=== PATIENT | female | born 1955 | race Caucasian/White ===

== ENCOUNTER → 2018-08-02 | Outpatient (CLI) | payer OTHER ==
--- NOTE | 2018-08-02 15:49 | XR ---
EXAMINATION TYPE: XR Hip Complete RT DATE OF EXAM: 08/02/2018 CLINICAL HISTORY: pain TECHNIQUE: AP and frogleg views of the right hip are obtained. COMPARISON: None. FINDINGS: Severe degenerative narrowing right hip joint space with underlying bony sclerosis and cyst ic change. Instability suggested about the right hip. Underlying avascular necrosis difficult to excl ude. No acute fracture identified. IMPRESSION: 1. Severe degenerative change about the right hip. ICD 10 NO FRACTURE, INITIAL EVALUATION
== END | disposition home or self-care (01) ==
LOC: RADXRMAIN 15:17
PROVIDERS: ATTEND Family Medicine
DX: M16.11 Unilateral primary osteoarthritis, right hip (principal)
CPT/HCPCS: 73502

== ENCOUNTER → 2018-10-21 | Outpatient (CLI) | payer MEDICAID ==
[2018-10-21 13:12] LABS: HCT 40.5 % (34.0-46.0); HGB 13.3 gm/dL (11.4-16.0); MCH 31.9 pg (25.0-35.0); MCHC 32.7 g/dL (31.0-37.0); MCV 97.6 fL (80.0-100.0); Platelet Count 246 k/uL (150-450); RBC 4.15 m/uL (3.80-5.40); RDW 12.4 % (11.5-15.5); WBC 7.8 k/uL (3.8-10.6)
[2018-10-21 13:15] LABS: Appearance,Urine Clear (Clear); Bilirubin,Urine Negative (Negative); Blood,Urine Negative (Negative); Color,Urine Light Yellow; Glucose,Urine (UA) Negative (Negative); Ketones,Urine 1+ (Negative); Leukocyte Esterase,Urine Negative (Negative); Nitrite,Urine Negative (Negative); Protein,Urine Negative (Negative); Specific Gravity,Urine 1.007 (1.001-1.035); Urobilinogen,Urine <2.0 mg/dL (<2.0)
[2018-10-21 13:25] LABS: INR 0.9 (<1.2); Partial Thromboplastin Time 23.6 sec (22.0-30.0); Prothrombin Time 9.8 sec (9.0-12.0)
[2018-10-21 13:59] LABS: ALT 26 U/L (9-52); AST 35 U/L (14-36); African American GFR (CKD) >90 (>60 ml/min/1.73 sqM); Albumin 4.6 g/dL (3.5-5.0); Alkaline Phosphatase 68 U/L (38-126); Anion Gap 12 mmol/L; Blood Urea Nitrogen 16 mg/dL (7-17); Carbon Dioxide 26 mmol/L (22-30); Chloride 101 mmol/L (98-107); Glucose 97 mg/dL (74-99); Potassium 4.4 mmol/L (3.5-5.1); Sodium 139 mmol/L (137-145); Total Bilirubin 0.5 mg/dL (0.2-1.3); Total Protein 8.2 g/dL (6.3-8.2)
== END | disposition home or self-care (01) ==
LOC: LABPAT 11:53
PROVIDERS: ATTEND Orthopaedic Surgery
DX: Z01.818 Encounter for other preprocedural examination (principal); Z01.812 Encounter for preprocedural laboratory examination
CPT/HCPCS: 36415; 80053; 81003; 85027; 85610; 85730; 87070; 93005

== ENCOUNTER 2018-10-29 06:27 | Inpatient (IN) | payer MEDICAID, OTHER ==
[~2018-10-29 06:27] MED LIST: ACETAMINOPHEN TAB 500 MG TAB PO ONE; DEXAMETHASONE SOD PHOSPHATE 10 MG/ML 1 ML VIAL IV ONE; MELOXICAM 7.5 MG TAB PO ONE; MIDAZOLAM 2 MG/2 ML VIAL IV PRN; ONDANSETRON 4 MG/2 ML VIAL IVP ONE; ROPIVACAINE 246.25 MG, EPINEPHrine 0.5 MG, KETOROLAC 30 MG, cloNIDine HCL/PF 80 MCG, WA... MISCELLANE ONE; SCOPOLAMINE 1.5MG/72HR PATCH TRANSDERM ONE; TRANEXAMIC ACID 1,000 MG in SODIUM CHLORIDE 0.9% 100 ML IVPB ONE
[2018-10-29] MEDS ORDERED: LACTATED RINGERS 1,000 ML IV ONE ×2 (06:58→09:24)
[2018-10-29] MEDS ORDERED: LIDOCAINE 1% 20 ML VIAL (10MG/ML) FOR IV START INTRADERMA ONE (06:58)
[2018-10-29] MEDS ORDERED: HYDROmorphone 1 MG/ML 1 ML SYRINGE IVP PRN (07:09)
[2018-10-29] MEDS ORDERED: MAGNESIUM HYDROXIDE 2,400 MG/10 ML CUP PO PRN (07:09)
[2018-10-29] MEDS ORDERED: HYDROmorphone 0.5 MG/0.5 ML SYRINGE IVP PRN ×2 (07:09)
[2018-10-29] MEDS ORDERED: NALOXONE 0.4 MG/ML 1 ML VIAL IV PRN (07:09)
[2018-10-29] MEDS ORDERED: HYDROcodone/APAP 5-325MG 1 EACH TAB PO PRN (07:09)
[2018-10-29] MEDS ORDERED: hydrOXYzine PAMOATE 25 MG CAP PO PRN (07:09)
[2018-10-29] MEDS ORDERED: ONDANSETRON 4 MG/2 ML VIAL IVP PRN (07:09)
[2018-10-29] MEDS ORDERED: DIAZEPAM 5 MG TAB PO PRN (07:09)
[2018-10-29] MEDS ORDERED: SODIUM CHLORIDE 0.9% IRRIG 1,000 ML BTL IRRIGATION ONE (07:44)
[2018-10-29] MEDS ORDERED: diphenhydrAMINE 50 MG/ML 1 ML VIAL ONE (07:44)
[2018-10-29] MEDS ORDERED: TRANEXAMIC ACID 1,000 MG/10 ML VIAL ONE (07:44)
[2018-10-29] MEDS ORDERED: PROPOFOL 10 MG/ML 20 ML VIAL IV ONE (07:44)
[2018-10-29] MEDS ORDERED: fentaNYL (PF) 50 MCG/ML 2 ML AMP ONE (07:44)
[2018-10-29] MEDS ORDERED: SODIUM CHLORIDE 0.9% 100 ML BAG ONE (07:44)
[2018-10-29] MEDS ORDERED: MIDAZOLAM 2 MG/2 ML VIAL ONE (07:44)
[2018-10-29] MEDS ORDERED: HEPARIN SODIUM,PORCINE 10,000 UNIT/ML 1 ML VIAL ONE (07:44)
[2018-10-29] MEDS ORDERED: ceFAZolin 3,000 MG in SODIUM CHLORIDE 0.9% IRRIGATIO 3,000 ML IRRIGATION ONE (08:00)
--- NOTE | 2018-10-29 09:18 | P.OP ---
Date of Procedure: 10/29/18 Preoperative Diagnosis: Severe osteoarthritis right hip Postoperative Diagnosis: Severe osteoarthritis right hip Procedure(s) Performed: Right total hip arthroplasty with a direct anterior approach Implants: Vargas and nephew Polarstem size 4 standard Vargas [employer] Nephew R3, 3 hole acetabular shell, 52 mm Vargas [employer] Nephew reflection 6.5 mm cancellus screw, 20 mm 2 [employer]arg[employer]hew R3, XLPE 20 acetabular liner Vargas [employer] Nephew Oxinium femoral head 36 m, +0 All components were press-fit. The articulation is Oxinium on polyethylene. Anesthesia: spinal Surgeon: Daniel Vivar Peripatologist #1: Celina Barakat Estimated Blood Loss (ml): 300 (147 mL returned with Cell Saver) Pathology: other (Femoral head) Condition: stable Disposition: PACU Indications for Procedure: After failure of conservative treatment we discussed the surgical and nonsurgical treatment options at length. Patient wishes to proceed with a total hip arthroplasty with a direct anterior approach. Complications specific to this procedure were discussed at length, including but not limited to infection, leg length discrepancy, dislocation, and nerve injury. Patient is aware of all these complications and informed consent was obtained Operative Findings: The operative findings are consistent with severe osteoarthritis of the right hip Description of Procedure: Patient was seen and evaluated in the preoperative area, consent was reviewed, and the surgical site was marked with a skin marker. Patient was then brought to the operating room and given prophylactic antibiotics intravenously. 1 g of Tranexamic acid was also given. A spinal anesthetic was administered by the anesthesia department. The patient was then placed on the Cobalt table with the bony prominences well-padded. The hip area was then prepped and draped in usual sterile fashion. A universal timeout was then performed, which confirmed the patient's name, surgical site, ALLERGIES, and procedure being performed. Next the incision site was located at 1 cm distal and 1 cm lateral to the anterior superior iliac spine. The skin and subcutaneous tissues were sharply incised. Incision was carefully dissected down to the fascia overlying the tensor fascia ary muscle. This fascia was then incised in line with the incision. Next, using blunt finger dissection, the tensor fascia ary muscle was dissected off its investing fascia. The muscle was then carefully retracted laterally with a cobra retractor over the lateral neck of the femur. Next, the circumflex vessels were identified and cauterized using the AquaMantis device. The anterior hip capsule was then exposed. The capsule was then opened and an inverted T fashion. Cobra retractors were then placed intracapsularly. The proximal femur was then visualized. The femoral neck was then osteotomized appropriate level above the lesser trochanter. Small amount of traction was placed with the Cobalt table. A small wedge of bone was then removed from the remaining femoral head. Next, using a corkscrew femoral head was easily removed from the acetabulum. On gross visual inspection, the femoral head had complete loss of articular cartilage in m ultiple periarticular osteophytes. Attention was then turned to the acetabulum. the acetabulum was exposed and any remaining labrum was excised. Sequential reaming of the acetabulum was performed using fluoroscopic guidance. When the appropriate size was reached, a trial was then placed. The position and fit of the trial was checked with fluoroscopy. The trial was then removed. Then, using fluoroscopic guidance, the final implant was impacted at 20 of anteversion and 40 of abduction, and fully seated in the acetabulum. 2 screws were then placed in the acetabulum. Again fluoroscopy was used to check position of the screws. Next, the liner was then impacted, with a 20 elevated liner located in the anterior superior quadrant. Component locking was confirmed. Attention was then directed to the femur. With the aid of the Cobalt table, the femur was externally rotated to approximately 130, extended, and abducted under the opposite leg. A side hook was then placed under the proximal femur, and the side hook elevator was used to elevate the proximal femur. Retractors were then placed. A capsular release was performed, as well as a release of the conjoined tendon, which afforded excellent visualization of the proximal femur. Next, a box osteotome was used to lateralize the proximal femur. A product handler was then used to locate the femoral canal. Sequential broaching was then performed with appropriate size which afforded excellent fixation in the proximal femur. A trial was then placed with appropriate head and neck, and the hip was gently reduced with the aid of the Cobalt table. Fluoroscopy was then used to check position of the components, as well as to ensure equal leg lengths. The hip was then gently dislocated and the trials were then removed. Final implants were then impacted and the hip was again reduced. Final fluoroscopic x-rays confirmed that the components were in anatomic position, as well as equal leg lengths. The hip was also taken through range of motion, and found to be stable. The hip was then copiously irrigated with antibiotic solution with pulsatile lavage. The hip was then irrigated with Irrisept solution. The soft tissues were then injected with a ropivacaine solution, which consisted of 246.25 mg of ropivacaine, 0.5 mg of epinephrine, 30 mg of Toradol, 80 g of clonidine, and 48.45 mL of sterile water, for a total of 100 mL of fluid injected. A second dose of 1 g of Tranexamic acid was also given. the fascia was then closed with 2-0 strata fix suture. The subcutaneous tissue was closed with 3-0 Vicryl. The subcuticular tissue was closed with 3-0 strata fix suture. The skin was then closed with Dermabond glue and a sterile silver dressing. The patient was then transferred to the recovery room in stable c ondition. The dietitian assistant FÉLIX Valentine was required due to the complexity of surgery, and the need for skilled surgical instrument technician for positioning, draping, exposure, retraction, and closure of the wound.
--- NOTE | 2018-10-29 09:20 | XR ---
EXAMINATION TYPE: XR Hip Limited RT, FL guidance operating room DATE OF EXAM: 10/29/2018 CLINICAL HISTORY: Right hip pain TECHNIQUE: Fluoroscopy. COMPARISON: None. FINDINGS: Fluoroscopic guidance was provided during procedure performed by Dr. Vivar. A total of 46 seconds of fluoroscopic time was utilized during the procedure and 2 spot images was acquired dur ing right hip arthroplasty. IMPRESSION: As Above.
[2018-10-29] MEDS: HYDROmorphone 0.5 MG/0.5 ML SYRINGE IVP PRN ×2 (09:31→09:44)
[2018-10-29] MEDS ORDERED: KETOROLAC 30 MG/ML 1 ML VIAL IVP ONE (09:44)
--- NOTE | 2018-10-29 09:52 | XR ---
EXAMINATION TYPE: XR Hip Limited RT DATE OF EXAM: 10/29/2018 CLINICAL HISTORY: Right hip pain and osteoarthritis. TECHNIQUE: Single AP portable view of right hip is obtained immediately postoperatively. COMPARISON: None. FINDINGS: Metallic hardware from right hip arthroplasty is seen and appears satisfactory in alignment and position. There is evidence of recent surgery with subcutaneous gas noted laterally. IMPRESSION: Metallic hardware from right hip arthroplasty is satisfactory in position.
[2018-10-29] MEDS: LACTATED RINGERS 1,000 ML IV SCH (10:14)
[2018-10-29] MEDS: SODIUM CHLORIDE 0.9% 1,000 ML IV SCH (10:17)
[2018-10-29 11:02] VITALS: BMI 25.7
[2018-10-29] MEDS: HYDROcodone/APAP 5-325MG 1 EACH TAB PO PRN ×3 (13:07→23:30)
--- NOTE | 2018-10-29 14:01 | P.CONS ---
History of Present Illness - Reason for Consult Consult date: 10/29/18 - History of Present Illness Patient is a 63-year-old female with a PMH of hypertension and severe hip osteoarthritis who was admitted for an elective right total hip replacement. The patient underwent the procedure earlier today uneventfully and was seen on the surgical floor postoperatively. The patient reported that her pain is well- controlled and is 0 out of 10 at rest with 5 out of 10 on movement. She otherwise denied any additional complaints and was in good spirits with family at the bedside. She denied chest pain, shortness of breath, fever, chills, nausea, vomiting, abdominal pain, or diarrhea. The patient noted compliance with her antihypertensive medications at home and states that she took her last dose earlier this morning prior to admission. Review of Systems Pertinent positives and negatives as discussed in HPI, a complete review of systems was performed and all other systems are negative. Past Medical History Past Medical History: Diabetes Mellitus, Hypertension, Osteoarthritis (OA) Additional Past Medical History / Comment(s): DIABETES DURING , THAT SON WAS DIAGNOSED WITH DIABETES IN HIS EARLY 20S, HAS INSULING PUMP. History of Any Multi-Drug Resistant Organisms: None Reported Additional Past Surgical History / Comment(s): WISDOM TEETH Past Anesthesia/Blood Transfusion Reactions: Motion Sickness Additional Past Anesthesia/Blood Transfusion Reaction / Comm: HAS NEVER HAS GENERAL ANESTHESIA. Past Psychological History: No Psychological Hx Reported Additional Psychological History / Comment(s): VERY ANXIOUS ABOUT THIS SURGERY Smoking Status: Never smoker Past Alcohol Use History: Rare Past Drug Use History: None Reported - Past Family History Mother Family Medical History: No Reported History Medications and Allergies Home Medications Medication Instructions Recorded Confirmed Type Acetaminophen [Tylenol Extra 500 mg PO Q6H PRN 10/22/18 10/29/18 History Strength] Ibuprofen [Motrin Ib] 200 - 400 mg PO Q6HR PRN 10/22/18 10/29/18 History Metoprolol Succinate (ER) [Toprol 50 mg PO QAM 10/22/18 10/29/18 History XL] Multivitamins, Thera [Multivitamin 1 tab PO QAM 10/22/18 10/29/18 History (formulary)] amLODIPine [Norvasc] 5 mg PO QAM 10/22/18 10/29/18 History Allergies Allergy/AdvReac Type Severity Reaction Status Date / Time bee venom protein (honey bee) Allergy Swelling Verified 10/29/18 11:14 poison porfirio extract Allergy Rash/Hives Verified 10/29/18 11:14 Physical Exam Vitals: Vital Signs Temp Pulse Pulse Resp BP Pulse Ox 10/29/18 10:15 67 18 128/66 96 10/29/18 10:00 68 18 136/68 98 10/29/18 09:45 91 18 124/62 98 10/29/18 09:26 97.7 F 82 18 112/55 100 10/29/18 06:55 97.7 F 86 18 186/80 98 Intake and Output 10/28/18 10/29/18 10/29/18 22:59 06:59 14:59 Intake Total 300 1251 Output Total 350 Balance 300 901 Intake: IV 300 1251 Output: Estimated Blood Loss 350 Other: # Voids 3 General: non toxic, no distress, appears at stated age, normal weight Derm: no unusual rashes/lesions no unusual ecchymoses, warm, dry Head: atraumatic, normocephalic, symmetric Eyes: EOMI, no lid lag, anicteric sclera, pupils equal round reactive to light ENT: Nose and ears atraumatic, no thrush, no pharyngeal erythema Neck: No thyromegaly, no cervical lymphadenopathy, trachea midline, supple Mouth: no lip lesion, mucus membranes moist Cardiovascular: S1S2 reg, no murmur, positive posterior tibial pulse bilateral, no edema, capillary refill less than 2 seconds Lungs: CTA bilateral, no rhonchi, no rales , no accessory muscle use Abdominal: soft, nontender to palpation, no guarding, no appreciable organom egaly, normal bowel sounds Ext: no gross muscle atrophy, muscle strength 5 out of 5 in all extremities except RLE due to pain, R hip anterior dressing noted clean and dry, no contractures Neuro: CN II-XI grossly intact, light touch intact all 4 extremities, finger to nose within normal limits, Psych: Alert, oriented, appropriate affect Assessment and Plan Plan: HTN -C/w home dose of antihypertensives Asthma -Continue with DuoNeb's when necessary Right hip severe osteoarthritis status post right total hip replacement -Continue with pain control as per orthopedics DVT prophylaxis -As per orthopedic service We appreciate this opportunity to be involved in this patient's care. We will follow the patient with you. For any further questions, please not hesitate to contact the [facility] inpatient team.
[2018-10-29] MEDS ORDERED: SENNOSIDES-DOCUSATE SODIUM 1 EACH TAB PO SCH (21:00)
[2018-10-29] MEDS: ASPIRIN 325 MG TAB PO SCH (21:19)
[2018-10-30] MEDS: SODIUM CHLORIDE 0.9% 1,000 ML IV SCH (00:34)
[2018-10-30] MEDS: HYDROcodone/APAP 5-325MG 1 EACH TAB PO PRN (05:49)
[2018-10-30] MEDS: ASPIRIN 325 MG TAB PO SCH (07:19)
[2018-10-30] MEDS: LACTATED RINGERS 1,000 ML IV SCH (07:20)
[2018-10-30 07:32] VITALS: RESP 15; TEMP 97.7
[2018-10-30 08:21] LABS: Basophils # (A) 0.1 k/uL (0-0.2); Basophils % (A) 1 %; Eosinophils % (A) 0 %; HCT 32.6 % (34.0-46.0); HGB 10.6 gm/dL (11.4-16.0); Lymphocytes % (A) 34 %; MCHC 32.4 g/dL (31.0-37.0); MCV 101.6 fL (80.0-100.0); Mean Platelet Volume 7.6; Monocytes # (A) 0.5 k/uL (0-1.0); Monocytes % (A) 6 %; Neutrophils # (A) 5.2 k/uL (1.3-7.7); Neutrophils % (A) 59 %; Platelet Count 203 k/uL (150-450); RBC 3.21 m/uL (3.80-5.40); RDW 13.3 % (11.5-15.5); WBC 8.9 k/uL (3.8-10.6)
[2018-10-30 08:42] VITALS: BP 138/78; PULSE 88
[2018-10-30] MEDS ORDERED: MELOXICAM 7.5 MG TAB PO SCH (09:00)
[2018-10-30] MEDS ORDERED: amLODIPine 5 MG TAB PO SCH (09:00)
[2018-10-30] MEDS ORDERED: METOPROLOL SUCCINATE (ER) 50 MG TAB.ER.24H PO SCH (09:00)
--- NOTE | 2018-10-30 09:04 | P.PN ---
Subjective Progress Note Date: 10/30/18 This is a 63-year-old female who is status post right total hip arthroplasty. This is postoperative day #1. Patient is seen and evaluated at bedside with Dr. Daniel Vivar. Patient complains of dizziness this morning. Patient states that her pain is well-controlled. Patient denies any fever/chills, numbness, weakness, tingling, abdominal pain, shortness of breath or chest pain. Objective - Vital Signs Vital signs: Vital Signs Temp 97.7 F 10/30/18 07:00 Pulse 88 10/30/18 08:42 Resp 15 10/30/18 07:00 BP 138/78 10/30/18 08:42 Pulse Ox 99 10/30/18 07:00 Intake & Output 10/29/18 10/30/18 10/30/18 18:59 06:59 18:59 Intake Total 1451 630 240 Output Total 350 Balance 1101 630 240 Intake: IV 1251 Intake, IV Titration 630 Amount Sodium Chloride 0.9% 1, 630 000 ml @ 70 mls/hr IV . [id number] [facility] Rx#:[id number] Oral 200 240 Output: Estimated Blood Loss 350 Other: Voiding Method Toilet Toilet # Voids 3 3 - Exam Vital signs are stable. Patient is in no acute distress and is alert and oriented 3. Calf is soft and nontender to palpation. Dressing is clean, dry, and intact. Patient has full foot and ankle motion without pain or difficulty. Neurovascular status and circulatory status are intact. - Labs CBC & Chem 7: 10/30/18 07:38 Labs: Abnormal Lab Results - Last 24 Hours (Table) 10/30/18 Range/Units 07:38 RBC 3.21 L (3.80-5.40) m/uL Hgb 10.6 L (11.4-16.0) gm/dL Hct 32.6 L (34.0-46.0) % MCV 101.6 H (80.0-100.0) fL Assessment and Plan (1) Osteoarthritis of right hip Current Visit: Yes Status: Acute Code(s): M16.11 - UNILATERAL PRIMARY OSTEOARTHRITIS, RIGHT HIP SNOMED Code(s): 574433989569344 (2) S/P total hip arthroplasty Current Visit: Yes Status: Acute Code(s): Z96.649 - PRESENCE OF UNSPECIFIED ARTIFICIAL HIP JOINT SNOMED Code(s): 879618002327 Plan: Continue routine postop care and pain control. Continue anticoagulation with aspirin. Weightbearing as tolerated with a walker. Leave dressing in place for 10 days. Appreciate input from medicine. Likely discharge home with homecare today or tomorrow.
--- NOTE | 2018-10-30 09:50 | P.PN ---
Subjective Progress Note Date: 10/30/18 The patient was seen and examined at the bedside in the surgical unit. She was in good spirits and noted that her pain is improved since yesterday. She reported no pain while at rest. She has been up and ambulating to the bathroom, and has passed urine and a bowel movement. She denied chest pain, shortness of breath, nausea, vomiting, diarrhea, fever, or chills. Objective - Vital Signs Vital signs: Vital Signs Temp 97.7 F 10/30/18 07:00 Pulse 88 10/30/18 08:42 Resp 15 10/30/18 07:00 BP 138/78 10/30/18 08:42 Pulse Ox 99 10/30/18 07:00 Intake & Output 10/29/18 10/30/18 10/30/18 18:59 06:59 18:59 Intake Total 1451 630 240 Output Total 350 Balance 1101 630 240 Intake: IV 1251 Intake, IV Titration 630 Amount Sodium Chloride 0.9% 1, 630 000 ml @ 70 mls/hr IV . [id number] [facility] Rx#:[id number] Oral 200 240 Output: Estimated Blood Loss 350 Other: Voiding Method Toilet Toilet # Voids 3 3 - Exam General: Non-toxic, in no acute distress, appears stated age HEENT: NC/AT, anicteric sclerae, moist conjunctiva, no lid-lag, PERRLA Cardiovascular: S1/S2 wnl, no murmurs, rubs, or gallops Lungs: Clear to auscultation, normal respiratory effort, no accessory muscle use Abdominal: Soft, non-tender, non-distended, no guarding, rebound, or rigidity Skin: Warm, dry Extremities: No edema or contractures, R anterior hip dressing, clean and dry Psychiatric: Alert and oriented to person, place and time, appropriate affect Neuro: CN II-XII grossly intact, no focal deficits - Labs CBC & Chem 7: 10/30/18 07:38 Labs: Abnormal Lab Results - Last 24 Hours (Table) 10/30/18 Range/Units 07:38 RBC 3.21 L (3.80-5.40) m/uL Hgb 10.6 L (11.4-16.0) gm/dL Hct 32.6 L (34.0-46.0) % MCV 101.6 H (80.0-100.0) fL Assessment and Plan Plan: HTN -C/w home dose of antihypertensives Asthma -Continue with DuoNeb's when necessary Right hip severe osteoarthritis status post right total hip replacement -Continue with pain control as per orthopedics DVT prophylaxis -As per orthopedic service We appreciate this opportunity to be involved in this patient's care. We will follow the patient with you. For any further questions, please not hesitate to contact the [facility] team.
--- NOTE | 2018-10-30 15:51 | P.DS ---
Providers Date of admission: 10/29/18 06:27 Expected date of discharge: 10/30/18 Attending physician: Daniel Vivar Consults: 10/29/18 07:09 Consult Physician Routine Consulting Provider: Joleen Astorga Consult Reason/Comments: medical management Do you want consulting provider notified?: Yes Primary care physician: Anabelle Coulter - Discharge Diagnosis(es) (1) Osteoarthritis of right hip Status: Acute (2) S/P total hip arthroplasty Status: Acute Hospital Course: This is a 63-year-old female with known history of degenerative arthritis of the right hip. The patient presents for evaluation. After discussion and consideration patient elects to proceed with total hip arthroplasty. The patient is seen preoperatively by Dr. Vivar and cleared for surgery. Patient is admitted to [facility] on 10/29/2018 for total hip arthroplasty. The procedures performed without complication or sequelae. The patient is doing well postoperatively. Labs and vital signs are stable on day of discharge. On day of discharge patient's hip incision is healing well. There is minimal erythema. There is no drainage noted at this time. There is minimal soft tissue swelling to the hip and thigh. Patient has full foot and ankle motion without difficulty or pain. Neurovascular status to the right lower extremity is intact. Patient is discharged home in good condition. Please see med rec for accurate list of home medications. Plan - Discharge Summary Discharge Rx Participant: No New Discharge Prescriptions: New Aspirin 325 mg PO BID #60 tab HYDROcodone/APAP 5-325MG [Kirby 5-325] 1 - 2 tab PO Q6HR PRN #56 tab PRN Reason: Pain Sennosides [Senokot] 1 tab PO BID #60 tablet No Action Ibuprofen [Motrin Ib] 200 - 400 mg PO Q6HR PRN PRN Reason: Pain amLODIPine [Norvasc] 5 mg PO QAM Multivitamins, Thera [Multivitamin (formulary)] 1 tab PO QAM Metoprolol Succinate (ER) [Toprol XL] 50 mg PO QAM Acetaminophen [Tylenol Extra Strength] 500 mg PO Q6H PRN PRN Reason: Pain Discharge Medication List Acetaminophen [Tylenol Extra Strength] 500 mg PO Q6H PRN 10/22/18 [History] Ibuprofen [Motrin Ib] 200 - 400 mg PO Q6HR PRN 10/22/18 [History] Metoprolol Succinate (ER) [Toprol XL] 50 mg PO QAM 10/22/18 [History] Multivitamins, Thera [Multivitamin (formulary)] 1 tab PO QAM 10/22/18 [History] amLODIPine [Norvasc] 5 mg PO QAM 10/22/18 [History] Aspirin 325 mg PO BID #60 tab 10/30/18 [Rx] HYDROcodone/APAP 5-325MG [Kirby 5-325] 1 - 2 tab PO Q6HR PRN #56 tab 10/30/18 [Rx] Sennosides [Senokot] 1 tab PO BID #60 tablet 10/30/18 [Rx] Follow up Appointment(s)/Referral(s): Anabelle Coulter MD [Primary Care Provider] - 11/05/18 3:15 pm [facility], [NON-STAFF] - As Needed Daniel Vivar DO [Doctor of Osteopathic Medicine] - 11/13/18 1:30 pm Patient Instructions/Handouts: Anterior Hip Replacement (DC) Activity/Diet/Wound Care/Special Instructions: Weightbearing as tolerated with walker. Leave dressing intact. Dressing may be removed by home care nurse or by patient in 10 days. May shower with dressing on. Please follow-up with [facility] in 2 weeks and call with any questions or concerns, . Discharge Disposition: HOME WITH HOME HEALTH SERVICES
== END 2018-10-30 15:12 | disposition home health service (06) | DRG 470 ==
LOC: 2ORMAIN 06:27 → 4SSUR 10:11
PROVIDERS: ADMIT Orthopaedic Surgery; ATTEND Orthopaedic Surgery
PROC: 0SR906A Replacement of Right Hip Joint with Oxidized Zirconium on Polyethylene Synthetic Substitute, Uncemented, Open Approach (ICD-10-PCS; principal; 2018-10-29 08:00)
DX: M16.11 Unilateral primary osteoarthritis, right hip (principal); E11.9 Type 2 diabetes mellitus without complications; I10 Essential (primary) hypertension; Z83.3 Family history of diabetes mellitus; J45.909 Unspecified asthma, uncomplicated; Z91.030 Bee allergy status; Z79.899 Other long term (current) drug therapy
CPT/HCPCS: 73501; 85025; 86850; 86891; 86900; 86901; 88300

== ENCOUNTER → 2019-03-11 | Outpatient (CLI) | payer MEDICAID ==
--- NOTE | 2019-03-13 13:49 | MM ---
Reason for exam: screening (asymptomatic). Last mammogram was performed 9 years and 7 months ago. History: Patient is postmenopausal. Physical Findings: A clinical breast exam by your physician is recommended on an annual basis and results should be correlated with mammographic findings. MG Screening Mammo w CAD Bilateral CC and MLO view(s) were taken. Prior study comparison: August 11, 2009, mammogram. The breast tissue is heterogeneously dense. This may lower the sensitivity of mammography. There is no discrete abnormality. No significant changes when compared with prior studies. ASSESSMENT: Negative, BI-RAD 1 RECOMMENDATION: Routine screening mammogram of both breasts in 1 year.
== END | disposition home or self-care (01) ==
LOC: RADMAMWWP 09:41
PROVIDERS: ATTEND Family Medicine
DX: Z12.31 Encounter for screening mammogram for malignant neoplasm of breast (principal)
CPT/HCPCS: 77067

== ENCOUNTER → 2024-03-10 | Outpatient (CLI) | payer MEDICARE ==
--- NOTE | 2024-03-11 09:52 | MM ---
Reason for Exam: Screening (asymptomatic). Last mammogram was performed 2 year(s) and 0 month(s) ago. Patient History: Menarche at age 15. First Full-Term at age 21. Postmenopausal. Patient has history of breast feeding. Risk Values: Millie 5 year model risk: 1.4%. NCI Lifetime model risk: 4.8%. Prior Study Comparison: 08/11/2009 Screening Mammogram, Unknown. 03/11/2019 Bilateral Screening Mammogram, [facility]. 03/08/2022 Bilateral Screening Mammogram, [facility] . Tissue Density: The breasts are heterogeneously dense, which may obscure small masses. Findings: Analyzed By CAD. Right breast: There is no suspicious group of microcalcifications or new suspicious mass. Left breast: There is no suspicious group of microcalcifications or new suspicious mass. Benign-appearing calcifications left breast. Overall Assessment: Benign, BI-RAD 2 Management: Screening Mammogram of both breasts in [address] [facility] will attempt to contact patient to return for supplemental views and ultrasound if indicated. Patient should continue monthly self-breast exams. A clinical breast exam by your physician is recommended on an annual basis. This exam should not preclude additional follow-up of suspicious palpable abnormalities. Note on Millie scores and lifetime risk: 1. A Millie score greater than 3% is considered moderate risk. If this is the case, consider specialist referral to assess eligibility for a risk reducing agent. 2. If overall lifetime risk for the development of breast cancer is 20% or higher, the patient may qualify for future screening with alternating mammogram and breast MRI. [facility], , 03/11/2024 9:50 AM. Electronically signed and approved by: Rishabh Vazquez DO
== END | disposition home or self-care (01) ==
LOC: RADMAMWWP 10:56
PROVIDERS: ATTEND Family Medicine
DX: Z12.31 Encounter for screening mammogram for malignant neoplasm of breast (principal); R92.333 Mammographic heterogeneous density, bilateral breasts; Z78.0 Asymptomatic menopausal state
CPT/HCPCS: 77063; 77067